=== PATIENT | female | born 1950 | race African-American/Black ===

== ENCOUNTER 2016-09-14 00:46 | Emergency (ER) | payer BC ==
[~2016-09-14] VITALS: Ht 160 cm; Wt 104.3 kg
[2016-09-14 01:12] VITALS: BP 179/99
[2016-09-14] MEDS ORDERED: HYDROcodone/APAP 5/325MG 1 TAB TABLET PO ONE (01:30)
[2016-09-14 01:40] LABS: BASO % 1 % (0-3); EOS % 3 % (0-3); HEMOGLOBIN 11.5 g/dL (12.0-15.5); LYMPH # 2.8 x10^3/uL (1.0-4.8); LYMPH % 39 % (24-48); MEAN CORPUSCULAR HEMOGLOBIN 28 pg (25-35); MEAN CORPUSCULAR HGB CONC 33 g/dL (31-37); MEAN CORPUSCULAR VOLUME 84 fL (79-100); MONO % 9 % (0-9); NEUT % 49 % (31-73); PLATELET COUNT 228 x10^3/uL (140-400); RED BLOOD COUNT 4.17 x10^6/uL (3.50-5.40); RED CELL DISTRIBUTION WIDTH 14.7 % (11.5-14.5); WHITE BLOOD COUNT 7.3 x10^3/uL (4.0-11.0)
[2016-09-14] MEDS ORDERED: LIDOCAINE 1% / SOD BICARB 8.4% 20 ML VIAL. IJ ONE (01:45)
[2016-09-14 01:55] LABS: CALCIUM 8.7 mg/dL (8.5-10.1); CREATININE 1.3 mg/dL (0.6-1.0); GFR 41.1; POTASSIUM 3.7 mmol/L (3.5-5.1)
--- NOTE | 2016-09-14 03:26 | PHYS DOC ---
Past Medical History Past Medical History: Cancer, Other Additional Past Medical Histor: UTERINE CA Past Surgical History: Hysterectomy, Other Additional Past Surgical Histo: R. KNEE Alcohol Use: None Drug Use: None Adult General Chief Complaint Chief Complaint: KNEE SWELLING HPI HPI Patient is a 65 year old female who presents with right knee pain & swelling. The patient reports 1 week history of swelling with increasing pain over past 48 hours. She reports redness of the knee. She denies fevers/chills, vomiting. No history of trauma, no prosthetic joint. She states she went to urgent care yesterday, was told that she had joint infection & was prescribed antibiotics but she didn't fill prescription. PCP is Dr. Angel. Review of Systems Review of Systems Constitutional: Denies fever or chills HENT: Denies nasal congestion or sore throat Respiratory: Denies cough or shortness of breath Cardiovascular: Denies chest pain GI: Denies abdominal pain, nausea, vomiting Musculoskeletal: Reports knee pain Integument: Reports red warm knee Neurologic: Denies headache Current Medications Current Medications Current Medications Medications (Trade) Dose Ordered Sig/Ronit Start Time Stop Time Status Last Admin Dose Admin Acetaminophen/ Hydrocodone Bitart (Lortab 5/325) 2 tab 1X ONCE 09/14/16 01:30 09/14/16 01:31 DC 09/14/16 01:29 2 TAB Lidocaine/Sodium Bicarbonate (Buffered Lidocaine 1%) 20 ml 1X ONCE 09/14/16 01:45 09/14/16 01:46 DC 09/14/16 01:45 20 ML Vancomycin HCl 250 ml @ 250 mls/hr 1X ONCE 09/14/16 03:30 09/14/16 04:29 DC 09/14/16 03:29 250 MLS/HR Allergies Allergies Allergies Coded Allergies Type Severity Reaction Last Updated Verified Sulfa (Sulfonamide Antibiotics) Allergy Unknown 09/14/16 Yes Physical Exam Physical Exam Constitutional: obese, no acute distress, non-toxic appearance. HENT: Normocephalic, atraumatic, bilateral external ears normal, oropharynx moist, nose normal. Eyes: conjunctiva normal, no discharge. Cardiovascular: no edema. Lungs & Thorax: no respiratory distress. Abdomen: nondistended. Skin: see knee exam below Extremities: right knee swelling present, erythema & warmth to superolateral knee which is tender with gentle palpation. painful ROM with flexion & extension but able to rest in extended position. dp/pt 2+, sensation intact to foot. Neurologic: Alert and oriented X 3 Current Patient Data Vital Signs Vital Signs Date Time Temp Pulse Resp B/P (MAP) Pulse Ox O2 Delivery O2 Flow Rate FiO2 09/14/16 01:29 20 09/14/16 01:12 97.3 93 97 Room Air 97.3 Lab Values Laboratory Tests Test 09/14/16 01:25 White Blood Count 7.3 x10^3/uL (4.0-11.0) Red Blood Count 4.17 x10^6/uL (3.50-5.40) Hemoglobin 11.5 g/dL (12.0-15.5) L Hematocrit 35.0 % (36.0-47.0) L Mean Corpuscular Volume 84 fL (79-100) Mean Corpuscular Hemoglobin 28 pg (25-35) Mean Corpuscular Hemoglobin Concent 33 g/dL (31-37) Red Cell Distribution Width 14.7 % (11.5-14.5) H Platelet Count 228 x10^3/uL (140-400) Neutrophils (%) (Auto) 49 % (31-73) Lymphocytes (%) (Auto) 39 % (24-48) Monocytes (%) (Auto) 9 % (0-9) Eosinophils (%) (Auto) 3 % (0-3) Basophils (%) (Auto) 1 % (0-3) Neutrophils # (Auto) 3.6 x10^3uL (1.8-7.7) Lymphocytes # (Auto) 2.8 x10^3/uL (1.0-4.8) Monocytes # (Auto) 0.6 x10^3/uL (0.0-1.1) Eosinophils # (Auto) 0.2 x10^3/uL (0.0-0.7) Basophils # (Auto) 0.0 x10^3/uL (0.0-0.2) Erythrocyte Sedimentation Rate 49 (0-25) H Sodium Level 141 mmol/L (136-145) Potassium Level 3.7 mmol/L (3.5-5.1) Chloride Level 105 mmol/L (98-107) Carbon Dioxide Level 29 mmol/L (21-32) Anion Gap 7 (6-14) Blood Urea Nitrogen 25 mg/dL (7-20) H Creatinine 1.3 mg/dL (0.6-1.0) H Estimated GFR (Cockcroft-Gault) 41.1 Glucose Level 104 mg/dL (70-99) H Calcium Level 8.7 mg/dL (8.5-10.1) C-Reactive Protein, Quantitative 9.1 mg/L (0-3.3) H Laboratory Tests 09/14/16 01:25 Laboratory Tests 09/14/16 01:25 EKG EKG [] Radiology/Procedures Radiology/Procedures XR R knee: interpreted by me: no fracture or dislocation, osteoarthritis - joint space narrowing Course & Med Decision Making Course & Med Decision Making Pertinent Labs and Imaging studies reviewed. (See chart for details) The patient presents with knee pain & swelling as well as erythema. Overall I suspect cellulitis, possibly gout. She had been told at outside facility that she had septic arthritis. I attempted to perform arthrocentesis but was unable to obtain synovial fluid despite multiple attempts. Labs as above, afebrile with normal WBC, mild elevation of ESR & CRP. Consulted with Dr. Abbott of orthopedic surgery, he agrees low suspicion for septic arthritis. Recommends single dose of IV vancomycin here, discharge with prescription for augmentin. Also gave prescription for norco for pain, no drinking alcohol or driving while taking norco. Follow up with Dr. Abbott in orthopedic clinic in 2 days. Call for appointment. Come back for high fever, spreading erythema/warmth/swelling, any otherwise worsening condition. Discharged home in stable condition. [] Dragon Disclaimer Dragon Disclaimer This electronic medical record was generated, in whole or in part, using a voice recognition dictation system. Departure Departure Impression: Primary Impression: Knee pain Additional Impression: Cellulitis of knee, right Disposition: HOME, SELF-CARE Condition: STABLE Referrals: MARGARET ANGEL (PCP) MARIO ALBERTO ABBOTT II, MD Patient Instructions: Cellulitis, [id number], Knee Pain, [id number] Additional Instructions: You were seen in the emergency department today for knee pain & swelling. Unfortunately fluid could not be obtained from your knee joint for analysis. Please take the prescribed antibiotic & use norco as needed for severe pain. No drinking alcohol or driving while taking norco. Call the orthopedic clinic on Friday for an appointment with Dr. Abbott. Come back for high fever, spreading redness/warmth/swelling, any otherwise worsening condition. Scripts Hydrocodone/Apap 5-325 (NORCO 5-325 TABLET) 1 Each Tablet 1 TAB PO PRN Q6HRS Y for PAIN, #10 TAB 0 Refills Prov: ALBIN WILL MD 09/14/16 Amoxicillin/Potassium Clav (AUGMENTIN 875-125 TABLET) 1 Each Tablet 1 TAB PO BID, #20 TAB Prov: ALBIN WILL MD 09/14/16 Problem Qualifiers ALBIN WILL MD September 14, 2016 03:25
[2016-09-14] MEDS ORDERED: VANCOMYCIN 1GM IVPB FOR OMNI 250 ML IV ONE (03:30)
[2016-09-14] MEDS ORDERED: HYDR-971 PO (04:36)
[2016-09-14] MEDS ORDERED: AMOX1TAB61 PO (04:36)
--- NOTE | 2016-09-14 07:48 | RAD ---
Indication: Knee pain and swelling. No known injury. Technique: 4 views of the right knee are submitted for review. No comparison is available. Findings: There is no fracture or dislocation. There is soft tissue swelling. There is no joint effusion. There is moderate compartmental narrowing and there is moderate spurring from the medial and patellofemoral compartments. Impression: Osteoarthritis greatest in the medial and patellofemoral compartments.
== END 2016-09-14 04:47 | disposition home or self-care (01) ==
LOC: ER 00:46
DX: L03.115 Cellulitis of right lower limb (principal); Z90.710 Acquired absence of both cervix and uterus; Z88.2 Allergy status to sulfonamides
CPT/HCPCS: 20610; 36415; 73564; 80048; 85027; 85651; 86140; 96374; 99285; J3370

== ENCOUNTER 2017-02-07 17:53 | Emergency (ER) | payer OTHER, BC, MEDICARE ==
[~2017-02-07] VITALS: Ht 160 cm; Wt 106.6 kg
[~2017-02-07 17:53] MED LIST: AMOX1TAB61 PO; HYDR-971 PO
[2017-02-07 18:10] VITALS: BP 161/87
[2017-02-07] MEDS ORDERED: CYCL10TA2 PO (18:52)
[2017-02-07] MEDS ORDERED: DICL50TA4 PO (18:52)
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
== END 2017-02-07 18:55 | disposition home or self-care (01) ==
LOC: ER 17:53
DX: S23.3XXA Sprain of ligaments of thoracic spine, initial encounter (principal); M25.562 Pain in left knee; I10 Essential (primary) hypertension; E78.00 Pure hypercholesterolemia, unspecified; Z88.2 Allergy status to sulfonamides; V43.62XA Car passenger injured in collision with other type car in traffic accident, initial encounter; Y93.89 Activity, other specified; Y92.410 Unspecified street and highway as the place of occurrence of the external cause; Y99.8 Other external cause status
CPT/HCPCS: 72072; 73564; 99284